=== PATIENT | female | born 1970 | race Two or more races ===

== ENCOUNTER 2016-11-14 09:23 | Inpatient (IN) | payer OTHER ==
[~2016-11-14] VITALS: Ht 152.4 cm; Wt 61.7 kg
[2016-11-14] VITALS (15 sets, daily range): BP systolic 86–106; BP diastolic 49–66
[~2016-11-14 09:23] MED LIST: NKM; ceFAZolin sod 2 GM in D5W 110 ML IVPB ONE
[2016-11-14] MEDS ORDERED: Vancomycin 1gm inj IVPB ONE (09:47)
[2016-11-14] MEDS ORDERED: Thrombin 5000 units TOPIC ONE ×2 (09:47→12:22)
[2016-11-14] MEDS ORDERED: Bupivacaine w/Epi 0.5% 30ml Vial INJ ONE (09:47)
[2016-11-14] MEDS ORDERED: Bacitracin 50000 Units Vial ONE (09:47)
[2016-11-14] MEDS ORDERED: LR 1000ml 1,000 ML IVLG SCH (10:58)
--- NOTE | 2016-11-14 10:58 | Anethesia Preoperative Eval ---
Anesthesia Pre-op PMH/ROS General Date of Evaluation: Nov 14, 2016 Time of Evaluation: 11:09 Anesthesiologist: Edmar ASA Score: ASA 2 Mallampati Score Class I : Soft palate, uvula, fauces, pillars visible Class II: Soft palate, uvula, fauces visible Class III: Soft palate, base of uvula visible Class IV: Only hard plate visible Mallampati Classification: Class I Surgeon: Sylvia Diagnosis: Neck Pain Surgical Procedure: ADR C5-6 Anesthesia History: none Family History: no anesthesia problems Allergies: Coded Allergies: No Known Allergies (Unverified , 11/13/16) Medications: see eMAR Past Medical History Endocrine: Reports: hypothyroidism PSxH Narrative: Appendectomy Anesthesia Pre-op Phys. Exam Physician Exam Last Vital Signs Date Time Temp Pulse Resp B/P Pulse Ox O2 Delivery O2 Flow Rate FiO2 11/14/16 10:02 98.4 56 18 99/61 99 Room Air Constitutional: NAD Neurologic: CN 2-12 intact Cardiovascular: RRR Respiratory: CTA Gastrointestinal: S/NT/ND Airway Exam MO: full ROM: limited Teeth: intact Anesthesia Pre-op A/P Labs Urine Test Test 11/14/16 09:38 Urine HCG, Qualitative Negative Risk Assessment & Plan Assessment: ASA 2 Plan: GA, BIS, Glidescope Status Change Before Surgery: No Pre-Antibiotics Dru Grams Ancef IV Given Within 1 Hr of Incision: Yes Time Given: 11:26 Jose Hyatt MD Nov 14, 2016 10:58
[2016-11-14] MEDS ORDERED: Metoclopramide 10mg/2ml Inj IVP PRN (11:00)
[2016-11-14] MEDS ORDERED: DiphenhydrAMINE 50mg/ml Inj IVP PRN (11:00)
[2016-11-14] MEDS ORDERED: Lidocaine 1% MPF 10mg/ml 5ml ONE (11:00)
[2016-11-14] MEDS ORDERED: Propofol 10mg/ml 100ml btl IV ONE (11:00)
[2016-11-14] MEDS ORDERED: Hydromorphone 0.5mg/0.5ml inj IVP PRN (11:00)
[2016-11-14] MEDS ORDERED: Midazolam 2mg/2ml Inj IVP PRN (11:00)
[2016-11-14] MEDS ORDERED: Atropine Inj 1mg/10ml Syr IV PRN (11:00)
[2016-11-14] MEDS ORDERED: Ketorolac 30mg Inj IV PRN (11:00)
[2016-11-14] MEDS ORDERED: Norco 7.5mg/325mg tab ORAL PRN ×3 (11:00→11:30)
[2016-11-14] MEDS ORDERED: Midazolam 2mg/2ml Inj ONE (11:00)
[2016-11-14] MEDS ORDERED: fentaNYL 100 mcg/2 mL IV PRN (11:00)
[2016-11-14] MEDS ORDERED: Dexamethasone 4mg/ml vial ONE (11:00)
[2016-11-14] MEDS ORDERED: Neostigmine 1mg/ml 10ml Inj ONE (11:00)
[2016-11-14] MEDS ORDERED: Zemuron 50mg/5ml Inj IV ONE (11:00)
[2016-11-14] MEDS ORDERED: Meperidine 25mg/ml Inj IV PRN (11:00)
[2016-11-14] MEDS ORDERED: Labetalol 5mg/ml 20ml vial IV PRN (11:00)
[2016-11-14] MEDS ORDERED: fentaNYL 250mcg/5ml ONE (11:00)
[2016-11-14] MEDS ORDERED: Sterile Water Irrig 1000ml IRRIG ONE (11:00)
[2016-11-14] MEDS ORDERED: LORazepam Inj 2mg/ml 1ml IV PRN (11:00)
[2016-11-14] MEDS ORDERED: LR 1000ml ONE (11:00)
[2016-11-14] MEDS ORDERED: Ketorolac 60mg Inj IV PRN (11:00)
[2016-11-14] MEDS ORDERED: Glycopyrrolate 0.2mg/ml 1ml Vial ONE (11:00)
[2016-11-14] MEDS ORDERED: Norco 5mg/325mg tab ORAL PRN ×2 (11:00→11:30)
[2016-11-14] MEDS ORDERED: Oxycodone/Acetaminophen 5-325 ORAL PRN (11:00)
[2016-11-14] MEDS ORDERED: NS Irrig 1000ml ONE (11:00)
--- NOTE | 2016-11-14 11:19 | Pre-Procedure Note/Attestation ---
Pre-Procedure Note/Attestation Complete Prior to Procedure Planned Procedure: not applicable Procedure Narrative: Artificial disc replacement of C56 Indications for Procedure Pre-Operative Diagnosis: C56 herniation Attestation I attest that I discussed the nature of the procedure; its benefits; risks and complications; and alternatives (and the risks and benefits of such alternatives ), prior to the procedure, with the patient (or the patient's legal asset protection representative). I attest that, if there was a reasonable possibility of needing a blood transfusion, the patient (or the patient's legal asset protection representative) was given the [facility] standardized written summary, pursuant to the Minesh Becky Blood Safety Act ([place] Health and Safety Code # 1645, as amended). I attest that I re-evaluated the patient just prior to the surgery and that there has been no change in the patient's H&P, except as documented below: MINDY MARI Nov 14, 2016 11:19
--- NOTE | 2016-11-14 11:20 | Brief Operative Note ---
Immediate Post Operative Note Operative Note Chief Complaint: neck pain and right arm pain Pre-op Diagnosis: C56 herniation Procedure: Artificial disc replacement of C56 Post-op Diagnosis: same as pre-op Findings: consistent w/pre-op dx studies Surgeon: Sylvia Municipal Services Manager: Deanna Anesthesiologist: Edmar Anesthesia: general Specimen: none Complications: none Condition: stable Estimated Blood Loss: minimal Implant(s) used?: Yes - Prodisc C 5 MINDY MARI Nov 14, 2016 11:20
[2016-11-14] MEDS ORDERED: Acetaminophen (Non formulary) 100 ML IV ONE (11:30)
[2016-11-14] MEDS ORDERED: Milk of Magnesia 30ml Ud ORAL PRN (11:30)
[2016-11-14] MEDS ORDERED: Naloxone 0.4mg/ml Inj IVP PRN (11:30)
[2016-11-14] MEDS ORDERED: HYDROmorphone 1mg/ml Carpuject SUBQ PRN (11:30)
[2016-11-14] MEDS ORDERED: HYDROmorphone 1mg/ml Carpuject IVP PRN (11:30)
[2016-11-14] MEDS: Dexamethasone 4mg/ml vial IVP SCH ×2 (12:00→17:26)
[2016-11-14] MEDS ORDERED: Surgicel 4in x 8in TOPIC ONE (12:20)
--- NOTE | 2016-11-14 13:30 | Immediate Post-Op Evaluation ---
Immediate Post-Op Evalulation Immediate Post-Op Evalulation Procedure: ADR C5-6 Date of Evaluation: Nov 14, 2016 Time of Evaluation: 13:37 IV Fluids: 800 LR Blood Products: 0 Estimated Blood Loss: 30 Urinary Output: 200 Blood Pressure Systolic: 89 Blood Pressure Diastolic: 58 Pulse Rate: 57 Respiratory Rate: 16 O2 Sat by Pulse Oximetry: 100 Temperature (Fahrenheit): 98.2 Pain Score (1-10): 2 Nausea: No Vomiting: No Complications 0 Patient Status: awake, reacts, patent, extubated, none Hydration Status: adequate Dru Grams Ancef IV Given Within 1 Hr of Incision: Yes Time Given: 11:26 Jose Hyatt MD Nov 14, 2016 13:30
--- NOTE | 2016-11-14 13:32 | 48 Hour Post Anesthesia Eval ---
Post Anesthesia Evaluation Procedure: ADR C5-6 Date of Evaluation: Nov 14, 2016 Time of Evaluation: 15:45 Blood Pressure Systolic: 106 0: 67 Pulse Rate: 61 Respiratory Rate: 18 Temperature (Fahrenheit): 98.4 O2 Sat by Pulse Oximetry: 100 Airway: patent Nausea: No Vomiting: No Pain Intensity: 2 Hydration Status: adequate Cardiopulmonary Status: Stable Mental Status/LOC: patient returned to baseline Follow-up Care/Observations: 0 Post-Anesthesia Complications: 0 Follow-up care needed: N/A Jose Hyatt MD Nov 14, 2016 13:32
[2016-11-14] MEDS: NS w/KCl 20mEq 1,000 ML IV SCH (17:19)
[2016-11-14] MEDS: Docusate 100mg cap ORAL SCH (17:26)
[2016-11-14] MEDS: Pericolace tab ORAL SCH (17:26)
[2016-11-14] MEDS: ceFAZolin sod 1 GM in D5W 55 ML IV SCH (20:26)
--- NOTE | 2016-11-14 20:33 | Consultation ---
History of Present Illness General Date patient seen: Nov 14, 2016 Time patient seen: 16:00 Chief Complaint: intractable neck pain Referring physician: Dr. 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 Pt doing well. Pain controlled. Denies f/c, n/c, d/c, chest pain, SOB. Allergies: Coded Allergies: No Known Allergies (Unverified , 11/13/16) Medication History Scheduled No Known Medications* (NKM - No Known Medications*), 0 ., (Reported) Patient History History Provided By: Patient, Family Member, Medical Record Healthcare decision maker Sukhjinder Saenz - Resuscitation status Full Code Advanced Directive on File Past Medical/Surgical History Past Medical/Surgical History: (1) HNP (herniated nucleus pulposus), cervical Family History Family History: (1) No significant family history Social History Social History: (1) No significant social history Review of Systems ROS Narrative CONSTITUTIONAL: No weight loss, fever, chills, weakness or fatigue. HEENT: Eyes: No visual loss, blurred vision, double vision or yellow sclerae. Ears, Nose, Throat: No hearing loss, sneezing, congestion, runny nose or sore throat. SKIN: No rash or itching. CARDIOVASCULAR: No chest pain, chest pressure or chest discomfort. No palpitations or edema. RESPIRATORY: No shortness of breath, cough or sputum. GASTROINTESTINAL: No anorexia, nausea, vomiting or diarrhea. No abdominal pain or blood. NEUROLOGICAL: No headache, dizziness, syncope, paralysis, ataxia, numbness or tingling in the extremities. No change in bowel or bladder control. MUSCULOSKELETAL: No muscle, back pain, joint pain or stiffness. HEMATOLOGIC: No anemia, bleeding or bruising. LYMPHATICS: No enlarged nodes. No history of splenectomy. PSYCHIATRIC: No history of depression or anxiety. ENDOCRINOLOGIC: No reports of sweating, cold or heat intolerance. No polyuria or polydipsia. ALLERGIES: No history of asthma, hives, eczema or rhinitis. Physical Exam Physical Exam Narrative General: alert, cooperative, no distress, appears stated age Head: normocephalic, without obvious abnormality, atraumatic Eyes: conjunctivae/corneas clear. PERRL, EOM's intact Throat: lips, mucosa, and tongue normal. MMM Neck: supple, symmetrical, trachea midline, and no JVD Lungs: clear to auscultation bilaterally Heart: regular rate and rhythm, S1, S2 normal, no murmur, click, rub or gallop Abdomen: soft, non-tender, non-distended, bowel sounds normal; no masses or organomegaly Extremities: extremities normal, atraumatic, no cyanosis or edema Pulses: 2+ and symmetric Skin: skin color, texture, turgor normal; no rashes or lesions Neurologic: grossly normal, no focal deficits Last 24 Hour Vital Signs Date Time Temp Pulse Resp B/P Pulse Ox O2 Delivery O2 Flow Rate FiO2 11/14/16 15:25 97.7 64 16 102/66 98 Nasal Cannula 2.0 11/14/16 15:00 55 22 99/58 100 Nasal Cannula 3.0 11/14/16 14:50 97.8 57 21 95/58 100 Nasal Cannula 3.0 11/14/16 14:49 97.8 11/14/16 14:49 97.8 11/14/16 14:40 55 20 102/54 100 Nasal Cannula 3.0 11/14/16 14:30 56 22 96/54 100 Nasal Cannula 3.0 11/14/16 14:20 57 20 102/60 100 Nasal Cannula 3.0 11/14/16 14:10 56 19 99/61 100 Nasal Cannula 3.0 11/14/16 14:00 52 18 106/60 100 Nasal Cannula 3.0 11/14/16 13:50 49 19 97/54 99 Nasal Cannula 3.0 11/14/16 13:40 50 16 95/57 100 Nasal Cannula 3.0 11/14/16 13:35 49 16 87/53 100 Simple Mask 6.0 11/14/16 13:32 61 18 100 11/14/16 13:30 57 16 100 11/14/16 13:29 51 13 89/50 100 Simple Mask 6.0 11/14/16 13:26 97.0 47 14 86/49 100 Simple Mask 6.0 11/14/16 10:02 98.4 56 18 99/61 99 Room Air Laboratory Tests Test 11/14/16 09:38 Urine HCG, Qualitative Negative Height (Feet): 5 Height (Inches): 0.00 Weight (Pounds): 136 Medications Current Medications Medications (Trade) Dose Ordered Sig/Ena Route PRN Reason Start Time Stop Time Status Last Admin Dose Admin Acetaminophen (Tylenol) 650 mg Q4H PRN ORAL headache or temp>101 11/14/16 11:30 12/14/16 11:29 Acetaminophen/ Hydrocodone Bitart ([place] 5/325) 1 tab Q3H PRN ORAL pain score 1-3 11/14/16 11:30 11/21/16 11:29 Acetaminophen/ Hydrocodone Bitart ([place] 7.5/325) 1 ea Q3H PRN ORAL pain score 4-6 11/14/16 11:30 11/21/16 11:29 Acetaminophen/ Hydrocodone Bitart ([place] 7.5/325) 2 ea Q3H PRN ORAL pain scale 7-10 11/14/16 11:30 11/21/16 11:29 Carisoprodol (Soma) 350 mg TIDPRN PRN ORAL SPASM 11/14/16 11:30 12/14/16 11:29 Cefazolin Sodium/ Dextrose (Ancef/D5W) 55 ml @ 110 mls/hr Q8H IV 11/14/16 20:00 11/15/16 12:29 11/14/16 20:26 Dexamethasone Sodium Phosphate (Decadron 4mg/ml vial) 4 mg Q6HR IVP 11/14/16 12:00 11/15/16 06:01 11/14/16 17:26 Docusate Sodium (Colace) 100 mg TWICE A DAY ORAL 11/14/16 18:00 12/14/16 17:59 11/14/16 17:26 Hydromorphone HCl (Dilaudid) 1 mg Q4H PRN SUBQ Mild Pain (Pain Scale 1-3) 11/14/16 11:30 11/21/16 11:29 Hydromorphone HCl (Dilaudid) 2 mg Q3H PRN SUBQ Severe Pain (Pain Scale 7-10) 11/14/16 11:30 11/21/16 11:29 Hydromorphone HCl (Dilaudid) 2 mg Q4H PRN SUBQ Moderate Pain (Pain Scale 4-6) 11/14/16 11:30 11/21/16 11:29 11/14/16 17:19 Hydromorphone HCl 1 mg 1 mg Q2H PRN IVP Breakthrough Pain 11/14/16 11:30 11/21/16 11:29 Magnesium Hydroxide (Mom) 30 ml QIDPRN PRN ORAL Constipation 11/14/16 11:30 12/14/16 11:29 Metoclopramide HCl (Reglan) 10 mg Q6H PRN IVP Nausea & Vomiting 11/14/16 11:30 12/14/16 11:29 Naloxone HCl (Narcan) 0.1 mg PRN PRN IVP RR<12/min, pt unarousable 11/14/16 11:30 12/14/16 11:29 Ondansetron HCl (Zofran) 4 mg Q6H PRN IVP Nausea & Vomiting 11/14/16 11:30 12/14/16 11:29 11/14/16 20:26 Senna/Docusate Sodium (Estefanía-Colace) 1 ea TWICE A DAY ORAL 11/14/16 18:00 12/14/16 17:59 11/14/16 17:26 Sodium Chloride (NS w/KCl 20mEq) 1,000 ml @ 100 mls/hr Q10H IV 11/14/16 17:00 12/14/16 16:59 11/14/16 17:19 Temazepam (Restoril) 15 mg HSPRN PRN ORAL Insomnia 11/14/16 11:30 11/21/16 11:29 Assessment/Plan Problem List: (1) HNP (herniated nucleus pulposus), cervical ICD Codes: M50.20 - Other cervical disc displacement, unspecified cervical region SNOMED: 41552643 Status: stable Assessment/Plan s/p anterior cervical disectomy and artificial disc replacement of C5-6 and partial vertebrectomy of C5-6, POD#0 - encourage mobilization/ambulation - encourage incentive spirometry to optimize pulmonary hygiene - DVT/GI prophylaxis as appropriate - ctm CBC and hemodynamics - ctm electrolytes, adjust/replete prn - PT/OT - pain control, supportive care, bowel regimen - DC planning Cindy Dominguez M.D. Nov 14, 2016 20:33
[2016-11-14] MEDS: Metoclopramide 10mg/2ml Inj IVP PRN (23:30)
[2016-11-15] MEDS: Dexamethasone 4mg/ml vial IVP SCH ×2 (00:47→05:38)
[2016-11-15 00:49] VITALS: BP 98/52
--- NOTE | 2016-11-15 03:18 | Operative Note - Dictated ---
DATE OF OPERATION: 11/14/2016 SURGEON: Jamar Ward M.D., orthopedic spine surgeon. [employer] OFFICER SURGEON: Aaron Huerta M.D. PREOPERATIVE DIAGNOSES: 1. Intractable neck pain. 2. Radiculopathy. 3. Herniation, C5-C6. 4. Neural foraminal stenosis C5-C6. 5. Stenosis. POSTOPERATIVE DIAGNOSES: 1. Intractable neck pain. 2. Radiculopathy. 3. Herniation, C5-C6. 4. Neural foraminal stenosis C5-C6. 5. Stenosis PROCEDURE PERFORMED: 1. Anterior cervical discectomy and artificial disc replacement of C5-C6 using a Synthes Prodisc C 5 height. 3. Use of intraoperative microscope. 4. Motor evoked potential monitoring. 5. Somatosensory evoked potential monitoring. 6. Supervision and interpretation of fluoroscopy. COMPLICATIONS: None. ANESTHESIA: General. ESTIMATED BLOOD LOSS: Less than 100 mL. INDICATIONS FOR SURGERY: This patient is a 46-year-old female who has a history of diagnoses as listed above. As of result of this, the patient sustained intractable neck pain, radiculopathy, herniation, C5-C6, neural foraminal stenosis C5-C6, and stenosis We tried a course of conservative management but despite this course there was still a significant component of persistent, recalcitrant neck pain and arm pain. The MRI demonstrated significant neural foraminal compromise secondary to disc herniations at C5-C6. We had a long discussion with Laurie regarding the risks and benefits of surgery. Our discussion included but was not limited to nonoperative management, chiropractic management, another epidural steroid injection as well definitive management in the form of surgery. We recommended a ADR C56 as final definitive management. We reviewed the risks and benefits of surgery with the patient. Our discussion included a comprehensive review of the clinical issues and the nature of the clinical decision. We reviewed the alternatives, including doing nothing. The patient elected to proceed accordingly with anterior cervical discectomy and artificial disc replacement of C5-C6 using a Synthes Prodisc C 5 height. We had a long discussion regarding the risks, alternatives and benefits of surgery. Our description of the risks included a discussion in person as well as a signed consent which detailed all pertinent risks from the procedure itself. Briefly, our discussion included but was not limited to infection, bleeding, pseudarthrosis, spinal cord injury, neurovascular injury, dural tear, CSF leak, neuropathy, paralysis, permanent weakness/drop foot/drop arm, paresthesias, blindness, palsy and weakness. The patient understood there may be a need for a revision surgery or additional procedures. Approach-related complications including dysphonia, dysphagia, blindness, permanent vocal cord and neural injury, hematoma, swallowing and breathing difficulty. Medical complications were reviewed including liver, kidney, shock, cardiopulmonary failure, anesthesia complications including , swelling, damage to the musculature, larynx/voice injury or loss, esophagus/throat, trachea, blood vessels and muscles/muscular sprain and lungs/pneumothorax during this surgical procedure; injury to deeper structures may be temporary or permanent. After this review of risks, the patient understood these and elected to proceed. A written and verbal consent was given. We discussed the pros and cons of all the alternatives. We discussed the uncertainties associated with the decision. Afterwards I assessed the patient's understanding and explored their preferences. All questions were answered and no guarantees were given. Medical clearance was obtained prior to surgery. INTRAOPERATIVE FINDINGS: A broad based disc herniation which was found posterior to a tear/rent in the posterior longitudinal ligament at C5-C6 causing a considerable amount of neural foraminal stenosis with significant encroachment on the neural foramina and spinal cord. DESCRIPTION OF PROCEDURE: Under the benefit of general endotracheal anesthesia and with the assistance of the entire operative team, the patient was moved from the rsan antonio onto the operative table in the supine position. The head was secured and carefully positioned appropriately. Bilateral arms were secured with GelPads and foam and all bony prominences were padded. For the bilateral lower extremities SCD and CHARI hose were placed for DVT prophylaxis. A surgical timeout was called which corroborated our planned procedure of anterior cervical discectomy and artificial disc replacement of C5-C6 using a Synthes Prodisc C 5 height. Preoperative antibiotics were administered within 30 minutes of the incision for antibiotic prophylaxis. Using lateral fluoroscopic radiography, the operative levels were delineated. Next the wound was prepped and draped with Chlorhexidine and sterile drapes. An incision was based on lateral fluoroscopy and we centered our incision at the C5-C6 interspace and next using a standard Logan-Smith anterior based approach the incision was taken down through the skin and subcutaneous tissues until the vertebral bodies and their corresponding disc spaces were visualized. A needle was placed into the interspace to confirm placement of the operative interspace and we performed the remainder of procedure under microscopic visualization. Next, using a bipolar and Bovie cautery to ensure meticulous hemostasis, the longus colli was mobilized bilaterally and retractors were placed deep to the longus colli bilaterally to address retraction. Next we turned our attention to the radical anterior discectomy. This was initially performed at C5-C6. First by using a 15 blade scalpel followed by narrow pituitaries and a Microsect 5-B curette was used to denude the endplate of all cartilaginous tissue. Next using a [employer] AM8 drillbit the vertebral endplates were removed in a layer by layer fashion, and ultimately the posterior uncinate joints bilaterally and posterior osteophytic lips and margins causing central and lateral impingement were carefully denuded until visualization of the posterior longitudinal ligament was possible. An endplate preparation was performed in the exact same fashion using an intervertebral bricklayer paving brick, sequential distraction was obtained throughout the disc space. We saw a tear/rent in the PLL and this was carefully mobilized and dissected using a Microsect 1-B curet until we visualized a broad-based disc herniation with compression of the spinal cord as well as neural foramina, right sided. This neural foraminal compression was carefully resected using a Kerrison-1 and Kerrison-2 rongeurs until complete decompression of the spinal cord was visualized and complete decompression of the neural foramina and nerve root therein as well as the axilla and lateral margin of the nerve root was visualized and subsequently completely decompressed. The family was notified at one hour intervals throughout the procedure to provide for consistent updates. We next turned our attention towards trialing our implant within the disc space. We initially tried size5 and the Prodisc Cervical spacer fit well in regards to depth and width. This implant was opened and prepared. Next under direct visualization I confirmed excellent fit in respect to the anterior and posterior vertebral bodies, the uncinate joints and in regards to toggle. Once satisfied with this placement on serial AP and lateral fluoroscopy I turned my attention towards cutting our josias. These were cut in the bones using a reciprocating drill and afterwards all free fragments of bone were irrigated. Next FloSeal was placed into the interspace and the implant was inserted using fluoroscopic guidance. Next the Synthes Prodisc C size 5 ADR was then carefully advanced and secured into the intervertebral space under direct visualization and with supervision of AP and lateral fluoroscopic views. Jamar Ward M.D. DR: Jose JOB#: [id number] CC: JOHN
[2016-11-15] MEDS: NS w/KCl 20mEq 1,000 ML IV SCH ×2 (03:56→12:19)
[2016-11-15] MEDS: ceFAZolin sod 1 GM in D5W 55 ML IV SCH ×2 (03:57→12:19)
[2016-11-15 04:12] VITALS: BP 90/47
[2016-11-15 08:00] VITALS: BP 94/46
[2016-11-15] MEDS: Docusate 100mg cap ORAL SCH ×2 (08:36→17:18)
[2016-11-15] MEDS: Pericolace tab ORAL SCH ×2 (08:36→17:18)
[2016-11-15] MEDS: Metoclopramide 10mg/2ml Inj IVP PRN (08:37)
[2016-11-15 11:52] VITALS: BP 88/50
--- NOTE | 2016-11-15 14:05 | General Progress Note ---
Assessment/Plan Status: stable Assessment/Plan (1) HNP (herniated nucleus pulposus), cervical ICD Codes: M50.20 - Other cervical disc displacement, unspecified cervical region SNOMED: [id number] Status: stable Assessment/Plan s/p anterior cervical disectomy and artificial disc replacement of C5-6 and partial vertebrectomy of C5-6, POD#1 - encourage mobilization/ambulation - encourage incentive spirometry to optimize pulmonary hygiene - DVT/GI prophylaxis as appropriate - ctm CBC and hemodynamics - ctm electrolytes, adjust/replete prn - PT/OT - pain control, supportive care, bowel regimen - DC planning--planfor d/c today Subjective Date patient seen: Nov 15, 2016 Time patient seen: 14:05 ROS Limited/Unobtainable: No Constitutional: Reports: no symptoms HEENT: Reports: no symptoms Cardiovascular: Reports: no symptoms Respiratory: Reports: no symptoms Gastrointestinal/Abdominal: Reports: no symptoms Genitourinary: Reports: no symptoms Endocrine: Reports: no symptoms Hematologic/Lymphatic: Reports: no symptoms Allergies: Coded Allergies: No Known Allergies (Unverified , 11/13/16) All Systems: reviewed and negative except above Subjective POD#1 Pain controlled Tolerating diet Passing gas OOB Objective Last 24 Hour Vital Signs Date Time Temp Pulse Resp B/P Pulse Ox O2 Delivery O2 Flow Rate FiO2 11/15/16 11:52 98.2 56 20 88/50 96 Room Air 11/15/16 08:00 97.3 60 18 94/46 99 Room Air 11/15/16 04:48 97.7 11/15/16 04:12 98.4 67 18 90/47 96 Room Air 11/15/16 00:49 97.7 64 19 98/52 97 Room Air 11/14/16 20:00 96.9 58 18 98/58 98 Nasal Cannula 3.0 11/14/16 15:25 97.7 64 16 102/66 98 Nasal Cannula 2.0 11/14/16 15:00 55 22 99/58 100 Nasal Cannula 3.0 11/14/16 14:50 97.8 57 21 95/58 100 Nasal Cannula 3.0 11/14/16 14:49 97.8 11/14/16 14:49 97.8 11/14/16 14:40 55 20 102/54 100 Nasal Cannula 3.0 11/14/16 14:30 56 22 96/54 100 Nasal Cannula 3.0 11/14/16 14:20 57 20 102/60 100 Nasal Cannula 3.0 11/14/16 14:10 56 19 99/61 100 Nasal Cannula 3.0 Intake and Output 11/14/16 11/15/16 19:00 07:00 Intake Total 1000 ml 955 ml Output Total 220 ml Balance 780 ml 955 ml IV Total 1000 ml 955 ml Output Urine Total 200 ml Estimated Blood Loss 20 ml # Voids 1 2 Height (Feet): 5 Height (Inches): 0.00 Weight (Pounds): 136 Objective General: alert, cooperative, no distress, appears stated age Head: normocephalic, without obvious abnormality, atraumatic Eyes: conjunctivae/corneas clear. PERRL, EOM's intact Throat: lips, mucosa, and tongue normal. MMM Neck: supple, symmetrical, trachea midline, and no JVD Lungs: clear to auscultation bilaterally Heart: regular rate and rhythm, S1, S2 normal, no murmur, click, rub or gallop Abdomen: soft, non-tender, non-distended, bowel sounds normal; no masses or organomegaly Extremities: extremities normal, atraumatic, no cyanosis or edema Pulses: 2+ and symmetric Skin: skin color, texture, turgor normal; no rashes or lesions Neurologic: grossly normal, no focal deficits Cindy Dominguez M.D. Nov 15, 2016 14:05
[2016-11-15 14:45] VITALS: BP 99/59
[2016-11-15 16:00] VITALS: BP 92/52
--- NOTE | 2016-11-15 22:58 | Discharge Summary ---
DATE OF ADMISSION: 11/14/2016 DATE OF DISCHARGE: 11/15/2016 DATE OF ADMISSION: 11/14/2016. DATE OF DISCHARGE: 11/15/2016. PROCEDURE PERFORMED DURING ADMISSION: Artificial disk replacement, cervical 5-6. REASON FOR ADMISSION: Herniated nucleus pulposus, cervical 5-6. DISCHARGE PHYSICAL EXAM: 1. Patient was ambulating with and without the assistance of physical therapy 2. Prior to discharge home incision was clean and dry with minimal swelling 3. Follows commands 4. Alert and oriented 5. Curran discontinued, voiding 6. Incentive spirometer at bedside 7. IVF hep locked MOTOR: Demonstrates expected postoperative bulk and tone. Moves biceps, triceps, and deltoid musculature on command. Moves hip flexors, quadriceps, tibialis anterior, EHL, gastrocsoleus musculature on command as well. TREATMENT RENDERED: 1. Daily nursing care 2. Physical Therapy 3. Occupational Therapy 4. Intravenous medications 5. Oral medications 6. Daily postoperative examinations by Spine surgery team CONDITION OF PATIENT ON DISCHARGE: The condition on discharge is stable for discharge to home DISCHARGE INSTRUCTIONS: Our specific instructions relating to physical activity, medications diet and follow-up care are detailed in our standard operative folder and were given to this patient prior to surgery. We will however summarize these briefly as stated below. Regarding physical activity we would like the patient to limit their flexion, extension and rotation. We also require a limitation on their bending lifting and twisting. All medication has been called in prior to surgery to their pharmacy of choice. They can resume their regular diet once tolerated. We would like them to shower and limit soaking the wound in a tub/Jacuzzi/the ocean for a period of one month or until the incision is completely healed. We will have them follow up in our office in three weeks time for their regularly scheduled appointment. They understand to call our office tomorrow to schedule the time for their three week followup appointment. The patient will notify us should they experience any increase in the severity of pain, redness/swelling/ or drainage from their incision. Jamar Ward M.D. DR: CHANDRAKANT JOB#: [id number] CC:
--- NOTE | 2016-11-17 08:09 | Diagnostic Imaging Report ---
Indication: Intraoperative imaging of the cervical spine for disc replacement of C5/C6 Technique: Intraoperative imaging of the cervical spine with for fluoroscopically captured images. Comparison: None Findings: Intraoperative imaging demonstrates cervical arthroplasty of the C5/C6 disc space. Endotracheal tube is present. Impression: Intraoperative imaging of the cervical spine.
== END 2016-11-15 19:00 | disposition home or self-care (01) | DRG 518 ==
LOC: SDSOVERFLO 09:23 → 3E 15:15
PROC: 0RR30JZ Replacement of Cervical Vertebral Disc with Synthetic Substitute, Open Approach (ICD-10-PCS; principal; 2016-11-14 11:30)
PROC: 4A11X4G Monitoring of Peripheral Nervous Electrical Activity, Intraoperative, External Approach (ICD-10-PCS; principal; 2016-11-14 11:30)
PROC: 0RT30ZZ Resection of Cervical Vertebral Disc, Open Approach (ICD-10-PCS; principal; 2016-11-14 11:30)
DX: M50.122 Cervical disc disorder at C5-C6 level with radiculopathy (principal); E03.9 Hypothyroidism, unspecified
CPT/HCPCS: 36415; 72040; 76001; 81025; 86850; 86900; 86901; 87081; 94003; 94150; C9399; J2180; J2250; J2405; J2710; J2765

== ENCOUNTER 2018-10-29 09:56 | Inpatient (IN) | payer OTHER ==
--- NOTE | 2018-10-28 10:05 | NUR ---
ADMITTED PT VIA [facility] #[id number].
[~2018-10-29] VITALS: Ht 154.9 cm; Wt 63.5 kg
[2018-10-29] VITALS (12 sets, daily range): BP systolic 92–108; BP diastolic 53–68
[~2018-10-29 09:56] MED LIST changes: -ceFAZolin sod 2 GM in D5W 110 ML IVPB ONE; +ceFAZolin sod 2 GM in D5W 110 ML IVPB SCH
--- NOTE | 2018-10-29 10:03 | Pre-Procedure Note/Attestation ---
Pre-Procedure Note/Attestation Complete Prior to Procedure Planned Procedure: left Procedure Narrative: Left sided hemilaminotomy foraminotomy microdiscectomy of Lumbar 45 and Lumbar 5Sacral 1 Indications for Procedure Pre-Operative Diagnosis: L45 and L5S1 herniation Attestation I attest that I discussed the nature of the procedure; its benefits; risks and complications; and alternatives (and the risks and benefits of such alternatives ), prior to the procedure, with the patient (or the patient's legal ambulatory services representative). I attest that, if there was a reasonable possibility of needing a blood transfusion, the patient (or the patient's legal ambulatory services representative) was given the [place] Department [employer] Services standardized written summary, pursuant to the M[place]h Becky Blood Safety Act ([place] Health and Safety Code # 1645, as amended). I attest that I re-evaluated the patient just prior to the surgery and that there has been no change in the patient's H&P, except as documented below: Jamar Ward MD Oct 29, 2018 10:03
--- NOTE | 2018-10-29 10:06 | Brief Operative Note ---
Immediate Post Operative Note Operative Note Chief Complaint: low back and leg pains Pre-op Diagnosis: L45 and L5S1 herniation Procedure: Left sided hemilaminotomy foraminotomy microdiscectomy of Lumbar 45 and Lumbar 5Sacral 1 Post-op Diagnosis: same as pre-op Findings: consistent w/pre-op dx studies Surgeon: Sylvia Sponge Fisherman: Tamika Anesthesiologist: Anesthesia: general Specimen: none Complications: none Condition: stable Fluids: ivf Estimated Blood Loss: minimal Drains: none Implant(s) used?: No Jamar Ward MD Oct 29, 2018 10:06
[2018-10-29] MEDS ORDERED: Milk of Magnesia 30ml Ud ORAL PRN (10:15)
[2018-10-29] MEDS ORDERED: Morphine Sulfate 4mg/ml Inj (IV/IM USE ONLY) IV PRN ×2 (10:15)
[2018-10-29] MEDS ORDERED: Norco 5mg/325mg tab ORAL PRN ×2 (10:15→11:15)
[2018-10-29] MEDS ORDERED: Chloraseptic Spray 20mL Bottle ORAL PRN (10:15)
[2018-10-29] MEDS ORDERED: HYDROmorphone 1mg/ml Carpuject IVP PRN (10:15)
[2018-10-29] MEDS ORDERED: Morphine Sulfate 2mg/ml Inj IV PRN (10:15)
[2018-10-29] MEDS ORDERED: Metoclopramide 10mg/2ml Inj IVP PRN (10:15)
[2018-10-29] MEDS ORDERED: HYDROcodone/Acetamin 7.5/325 tab ORAL PRN ×2 (10:15→11:15)
[2018-10-29] MEDS ORDERED: Naloxone 0.4mg/ml Inj IVP PRN (10:15)
[2018-10-29] MEDS ORDERED: LR 1000ml 1,000 ML IVLG SCH (11:13)
[2018-10-29] MEDS ORDERED: fentaNYL 100 mcg/2 mL IV PRN (11:15)
[2018-10-29] MEDS ORDERED: LORazepam Inj 2mg/ml 1ml IV PRN (11:15)
[2018-10-29] MEDS ORDERED: Meperidine 50mg/ml Inj(FOR RIGORS ONLY) IVP PRN (11:15)
[2018-10-29] MEDS ORDERED: Hydromorphone 0.5mg/0.5ml inj IVP PRN (11:15)
[2018-10-29] MEDS ORDERED: Midazolam 2mg/2ml Inj IVP PRN (11:15)
[2018-10-29] MEDS ORDERED: oxyCODONE HCL/Acetaminophen 5/325mg ORAL PRN (11:15)
[2018-10-29] MEDS ORDERED: Ketorolac 30mg Inj IV PRN ×2 (11:15)
[2018-10-29] MEDS ORDERED: DiphenhydrAMINE 50mg/ml Inj IVP PRN (11:15)
[2018-10-29] MEDS ORDERED: Atropine Sulfate 0.4mg/ml inj IVP PRN (11:15)
--- NOTE | 2018-10-29 11:15 | Anethesia Preoperative Eval ---
Anesthesia Pre-op PMH/ROS General Date of Evaluation: Oct 29, 2018 Time of Evaluation: :17 Anesthesiologist: Edmar ASA Score: ASA 2 Mallampati Score Class I : Soft palate, uvula, fauces, pillars visible Class II: Soft palate, uvula, fauces visible Class III: Soft palate, base of uvula visible Class IV: Only hard plate visible Mallampati Classification: Class I Surgeon: Sylvia Diagnosis: Back Pain Surgical Procedure: L Microdiscectomy, Hemilaminotomy, Baxano, Discectomy L4-S1 Anesthesia History: none Family History: no anesthesia problems Allergies: Coded Allergies: No Known Allergies (Unverified , 11/13/16) Medications: see eMAR Patient NPO?: Yes NPO Date: Oct 28, 2018 NPO Time: 1999 Past Medical History Neurologic/Psychiatric: Reports: depression/anxiety Endocrine: Reports: hypothyroidism PSxH Narrative: Appendectomy, Cervical Fusion 2017 Anesthesia Pre-op Phys. Exam Physician Exam Last Vital Signs Date Time Temp Pulse Resp B/P (MAP) Pulse Ox O2 Delivery O2 Flow Rate FiO2 10/29/18 11:08 98.6 52 18 101/64 (76) 98 Constitutional: NAD Neurologic: CN 2-12 intact Cardiovascular: RRR Respiratory: CTA Gastrointestinal: S/NT/ND Airway Exam Mallampati Score: Class I MO: full ROM: limited Teeth: intact Anesthesia Pre-op A/P Labs Urine Test Test 10/29/18 10:10 Urine HCG, Qualitative Negative (NEGATIVE) Risk Assessment & Plan Assessment: ASA 2 Plan: GA, SED, GlideScope Go Status Change Before Surgery: No Pre-Antibiotics Dru Grams Ancef IV Given Within 1 Hr of Incision: Yes Time Given: 13:36 Jose Hyatt MD Oct 29, 2018 11:15
--- NOTE | 2018-10-29 11:23 | 48 Hour Post Anesthesia Eval ---
Post Anesthesia Evaluation Procedure: L Microdiscectomy, Hemilaminotomy, Baxano, Discetomy L4-S1 Date of Evaluation: Oct 29, 2018 Time of Evaluation: 17:56 Blood Pressure Systolic: 102 0: 67 Pulse Rate: 69 Respiratory Rate: 18 Temperature (Fahrenheit): 98.2 O2 Sat by Pulse Oximetry: 100 Airway: patent Nausea: No Vomiting: No Pain Intensity: 2 Hydration Status: adequate Cardiopulmonary Status: Stable Mental Status/LOC: patient returned to baseline Follow-up Care/Observations: 0 Post-Anesthesia Complications: 0 Follow-up care needed: N/A Jose Hyatt MD Oct 29, 2018 11:23
--- NOTE | 2018-10-29 11:23 | Immediate Post-Op Evaluation ---
Immediate Post-Op Evalulation Immediate Post-Op Evalulation Procedure: L Microdiscectomy, Hemilaminotomy, Baxano, Discetomy L4-S1 Date of Evaluation: Oct 29, 2018 Time of Evaluation: 15:52 IV Fluids: 500 LR Blood Products: 0 Estimated Blood Loss: 20 Urinary Output: 200 Blood Pressure Systolic: 103 Blood Pressure Diastolic: 64 Pulse Rate: 70 Respiratory Rate: 16 O2 Sat by Pulse Oximetry: 100 Temperature (Fahrenheit): 97.9 Pain Score (1-10): 2 Nausea: No Vomiting: No Complications 0 Patient Status: awake, reacts, patent, extubated, none Hydration Status: adequate Dru Grams Ancef IV Given Within 1 Hr of Incision: Yes Time Given: 15:36 Jose Hyatt MD Oct 29, 2018 11:23
[2018-10-29] MEDS ORDERED: Zemuron 50mg/5ml Inj IV ONE (11:32)
[2018-10-29] MEDS ORDERED: Acetaminophen (Non formulary) 100 ML IV SCH (12:00)
[2018-10-29] MEDS ORDERED: fentaNYL 100 mcg/2 mL IV ONE (12:39)
[2018-10-29] MEDS ORDERED: Sodium Chloride 10ml vial INJ ONE (12:40)
[2018-10-29] MEDS ORDERED: Lidocaine 1% Plain 30 ml INJ ONE (12:40)
[2018-10-29] MEDS ORDERED: Lidocaine 1% MPF 10mg/ml 5ml ONE (12:40)
[2018-10-29] MEDS ORDERED: NS Irrig 1000ml ONE (13:00)
[2018-10-29] MEDS ORDERED: Neostigmine 1mg/ml 10ml Inj ONE (13:00)
[2018-10-29] MEDS ORDERED: LR 1000ml ONE ×2 (13:00)
[2018-10-29] MEDS ORDERED: Sterile Water Irrig 1000ml IRRIG ONE (13:00)
[2018-10-29] MEDS ORDERED: Vancomycin 1gm vial IVPB ONE (13:20)
[2018-10-29] MEDS ORDERED: Thrombin 5000 units TOPIC ONE ×2 (13:20→14:21)
[2018-10-29] MEDS ORDERED: Ropivacaine 5mg/ml Vial 30ml INJ ONE ×3 (13:21→14:59)
[2018-10-29] MEDS ORDERED: Bacitracin 50000 Units Vial ONE (13:21)
[2018-10-29] MEDS ORDERED: Gelfoam Size TOPIC ONE (13:21)
[2018-10-29] MEDS ORDERED: Glycopyrrolate 0.2mg/ml 1ml Vial ONE (14:08)
--- NOTE | 2018-10-29 16:50 | Diagnostic Imaging Report ---
INDICATION: Pain, intraoperative TECHNIQUE: Intraoperative imaging Fluoroscopy time: 5.1 seconds Total dose: 0.35287 mGym2 Total number of images: 3 COMPARISON: None FINDINGS: Intraoperative images demonstrate surgical tool's projected over the L4 vertebral body and posterior to what is presumably the L5-S1 disc. Subsequent images demonstrate surgical tools posterior to the L4-5 and L5-S1 disc. Subsequent images demonstrate deployment of surgical device at L5-S1 IMPRESSION: Intraoperative imaging, as described
--- NOTE | 2018-10-29 17:18 | NUR ---
NURSE NOTES: Received patient in bed from PACU. awake, oriented. verbally responsive. with no sob. IV access in wrist intact. with no bleeding. Daughter at bedside. no belongings. Oriented to room and call light. Will cont to monitor.
--- NOTE | 2018-10-29 18:00 | NUR ---
NURSE NOTES: Patient received from PACU via bed to 315-1 at 1705, stable condition. Occitan speaking, daughter present at bedside as automatic fancy machine operator. O2 3LNC in place, no SOB/respiratory distress noted. IVF infusing to right wrist, as ordered, site asymptomatic. Neuro checks done, CMS+, skin warm, pedal pushes equal/strong, wiggles, denies numbness, mild tingling noted at bases of bilateral feet. SCDs on. Encouraged CDB/ankle ROM. FC in place, patent to gravity. Patient reports no past medical history, no past surgical history, no home medications. Surgical dressing clean/dry/intact, ice pack in place. Patient oriented to room, call light in reach, bed in lowest position, will continue to monitor.
[2018-10-29] MEDS: NS w/KCl 20mEq 1,000 ML IV SCH (18:31)
--- NOTE | 2018-10-29 20:00 | NUR ---
HAND-OFF: Report given to Finesse GAN.
--- NOTE | 2018-10-29 20:13 | Cardiology Progress Note ---
Assessment/Plan Assessment/Plan [id number] antiemetic dvt ppx IS ambualte when allow bernardo esoon bp at [facility] 97/67in md office Objective Last 24 Hour Vital Signs Date Time Temp Pulse Resp B/P (MAP) Pulse Ox O2 Delivery O2 Flow Rate FiO2 10/29/18 17:08 97.9 10/29/18 17:08 97.9 10/29/18 16:53 97.9 54 13 100/53 100 Nasal Cannula 3 10/29/18 16:38 52 14 108/68 100 Nasal Cannula 3 10/29/18 16:25 51 15 104/67 100 Nasal Cannula 3 10/29/18 16:10 53 13 101/65 100 Nasal Cannula 3 10/29/18 16:00 60 20 102/65 100 Simple Mask 6 10/29/18 15:50 62 15 102/63 100 Simple Mask 6 10/29/18 15:45 66 17 104/64 100 Simple Mask 6 10/29/18 15:41 97.9 70 16 98/63 100 Simple Mask 6 10/29/18 15:40 69 18 100 10/29/18 15:39 70 16 100 10/29/18 11:12 Room Air 10/29/18 11:08 98.6 52 18 101/64 (76) 98 Laboratory Tests Test 10/29/18 10:10 Urine HCG, Qualitative Negative (NEGATIVE) Gui Orr MD Oct 29, 2018 20:13
--- NOTE | 2018-10-29 20:30 | NUR ---
NURSE NOTES: Received report from Grace GAN. Pt A&O x4, laying semi-fowlers in bed. No signs of pain or distress. IV site dry & intact, infusing fluids. Surgical dressing C/D/I. Ice pack on surgical site. Curran patent & draining, yellow urine. Pt B/P 92/53, ordered 250 NS bolus. B/P reassessed 105/64. Call light in reach, bed in lowest position, side rails up x2. Will continue to monitor
[2018-10-29] MEDS: ceFAZolin sod 1 GM in D5W 55 ML IV SCH (20:58)
[2018-10-29] MEDS ORDERED: NS 250 ML IVPB ONE (21:00)
[2018-10-29] MEDS: HYDROcodone/Acetamin 7.5/325 tab ORAL PRN (22:43)
[2018-10-30] VITALS: BP 91/54
[2018-10-30] MEDS: Dexamethasone 4mg/ml vial IVP SCH ×4 (00:24→18:52)
--- NOTE | 2018-10-30 02:45 | Consultation ---
DATE OF CONSULTATION: 10/29/2018 INTERNAL MEDICINE CONSULTATION CONSULTING PHYSICIAN: Gui Orr M.D. REFERRING PHYSICIAN: Jamar Ward M.D. REASON FOR REFERRAL: Postoperative medical care. HISTORY OF PRESENT ILLNESS: This is a middle-aged female, who has a history of herniated nucleus pulposus, cervical and lumbar, who underwent surgery by Dr. Ward with left-sided hemilaminectomy, foraminectomy, and microdiskectomy. Postoperatively, the patient is being seen now. She does have some nausea. No vomiting. No sore throat. No chest pain or any shortness of breath. No palpitation. No dizziness. Just appeared to be nauseated. PAST MEDICAL HISTORY: Fairly unremarkable. PAST SURGICAL HISTORY: She does have a history of cervical spine surgery. ALLERGIES: She has no known drug allergies. SOCIAL HISTORY: Does not smoke. Does not drink alcoholic beverages. No drug use. REVIEW OF SYSTEMS: GASTROINTESTINAL: Positive for nausea. No bowel movement. She has no vomiting. GENITOURINARY: She has Curran catheter in place. PULMONARY: Denies cough, wheezing, or sore throat. CONSTITUTIONAL: No fevers, chills, or night sweats. NEUROLOGIC: Negative. PHYSICAL EXAMINATION: GENERAL: Shows to be a middle-aged female, in no respiratory distress. NECK: Supple. No jugular venous distention. LUNGS: Clear to auscultation and percussion. CARDIAC: S1 is normal. S2 is normal. Regular rate and rhythm. There is systolic ejection murmur noted in the upper chest. ABDOMEN: Soft, nontender, and obese. EXTREMITIES: There is no edema. She has pneumatic compression stockings in place. NEUROLOGIC: She is awake, alert, and responsive. Moves all four extremities. LABORATORY VALUES: Only available from preoperative, which reviewed normal sinus rhythm, normal QRS axis, and no ST or T-wave abnormalities of any significant degree. A chest x-ray was performed, preoperatively shows normal chest and her blood tests show white count of 7.4, hemoglobin of 16.1, and platelet count of 327,000. Sodium 140, potassium 4.2, chloride 109, bicarb is 26, BUN of 14, creatinine is 0.6, cholesterol 171, and LDL of 104. Liver function tests are otherwise unremarkable. PT and PTT are within normal limits. Urinalysis was fairly unremarkable. ASSESSMENT AND PLAN: 1. Low back pain secondary to L4, L5, and S1 disk herniation. Now, postoperative day #0. 2. Nausea. 3. Minimal hypotension. Dr. Ward, this patient was seen in cardiac consultation. The patient's blood pressure 98/63. She is asymptomatic. Her preoperative blood pressure was 96/67, on review of the physician, who started her on preoperative consultation, therefore not much change from baseline. She is nauseated from the effect of sedation and pain medications. Antiemetics to be administered. DVT prophylaxis with the use of pneumatic compression stockings in place. Incentive spirometer is available and instructed to use. Hopefully, she will be able to move around tomorrow. Once she takes adequate p.o. and is able to move around and have bowel movements, she will be discharged home hopefully within the next day or two. Gui Orr M.D. DR: MINDI JOB#: [id number] CC:
[2018-10-30 04:00] VITALS: BP 96/52
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
[2018-10-30] MEDS: ceFAZolin sod 1 GM in D5W 55 ML IV SCH ×2 (04:15→12:35)
[2018-10-30] MEDS: NS w/KCl 20mEq 1,000 ML IV SCH ×2 (04:15→17:21)
[2018-10-30] MEDS: HYDROcodone/Acetamin 7.5/325 tab ORAL PRN ×3 (06:05→19:48)
--- NOTE | 2018-10-30 07:55 | NUR ---
HAND-OFF: Report given to Jennie GAN. Pt is stable.
[2018-10-30 08:00] VITALS: BP 99/54
--- NOTE | 2018-10-30 08:00 | NUR ---
NURSE NOTES: Received report from Finesse GAN. During rounds patient is awake alert and oriented x4, no s/s acute distress noted. Posterior dressing assessed c/d/i. IVF running per order. Curran to gravity drainage, will remove today per order. Patient reports she is having pain rated 7/10 at surgical site. Educated patient that I will medicate per order when pain medication is due, patient in agreement. Side rails upx3, bed low and locked, call light in reach. Will continue to monitor.
[2018-10-30] MEDS: Docusate Sod/Senna tab ORAL SCH ×2 (08:40→18:53)
[2018-10-30] MEDS: Docusate 100mg cap ORAL SCH ×2 (08:40→18:53)
--- NOTE | 2018-10-30 10:27 | General Surgery Progress Note ---
General Surgery-Progress Note Subjective Day of Surgery: Reason for Consult POD 1 Procedure Performed Left sided hemilaminotomy foraminotomy microdiscectomy of Lumbar 45 and Lumbar 5Sacral 1 with darlene Chief Complaint: abdominal and flank ache Symptoms: pain same, tolerating diet, passing flatus Additional Comments Notes some left leg paresthesias similar to preop Objective Last 24 Hour Vital Signs Date Time Temp Pulse Resp B/P (MAP) Pulse Ox O2 Delivery O2 Flow Rate FiO2 10/30/18 08:00 97.8 61 20 99/54 (69) 98 10/30/18 04:00 98.3 67 16 96/52 (67) 99 10/30/18 00:00 98.6 68 16 91/54 (66) 99 10/29/18 21:00 Nasal Cannula 3.0 10/29/18 20:30 65 105/64 (78) 96 10/29/18 20:00 98.2 63 18 92/53 (66) 95 10/29/18 17:08 97.9 10/29/18 17:08 97.9 10/29/18 17:05 Nasal Cannula 3.0 10/29/18 17:05 97.6 50 18 98/60 (73) 98 10/29/18 16:53 97.9 54 13 100/53 100 Nasal Cannula 3 10/29/18 16:38 52 14 108/68 100 Nasal Cannula 3 10/29/18 16:25 51 15 104/67 100 Nasal Cannula 3 10/29/18 16:10 53 13 101/65 100 Nasal Cannula 3 10/29/18 16:00 60 20 102/65 100 Simple Mask 6 10/29/18 15:50 62 15 102/63 100 Simple Mask 6 10/29/18 15:45 66 17 104/64 100 Simple Mask 6 10/29/18 15:41 97.9 70 16 98/63 100 Simple Mask 6 10/29/18 15:40 69 18 100 10/29/18 15:39 70 16 100 10/29/18 11:12 Room Air 10/29/18 11:08 98.6 52 18 101/64 (76) 98 I&O Intake and Output 10/29/18 10/30/18 19:00 07:00 Intake Total 700 ml 1200 ml Output Total 220 ml Balance 480 ml 1200 ml Intake IV Total 700 ml 1200 ml Output Urine Total 200 ml Estimated Blood Loss 20 ml # Voids 1 Dressing: dry Wound: clean, dry, intact Drains: none Abdomen: soft, flat Extremities: edema, no edema, no tenderness, no cyanosis, other - EHL Tibanterior 4+/5 Plan Additional Comments Continue with SCDs Incentive [place] 10x hr Dc Curran catheter Anticipate dc home Thursday Ptherapy today and Thursday Jamar Ward MD Oct 30, 2018 10:27
--- NOTE | 2018-10-30 11:12 | NUR ---
NURSE NOTES: Curran catheter removed per MD order. Patient tolerated well. Patient instructed to inform RN when ready to void. Will follow up and continue to monitor.
[2018-10-30 12:00] VITALS: BP 98/55
--- NOTE | 2018-10-30 13:45 | NUR ---
CASE MANAGEMENT: REVIEW 48 YO M PRESENTED TO OUR ED FROM HOME CC: BACK PAIN PMHx: BACK INJURY SI:HERNIATED NUCLEUS PULPOSUS. PAIN RADICULOPATHY. T 98.6 HR 52 RR 18 B/P 101/64 SATS 98% ON RA HCG NEG IS: OR MEDS PATIENT ADMITTED TO MED/SURG 10/29/2018 @ 1006 DCP: PATIENT TO BE DISCHARGED TO HOME ONCE MEDICALLY CLEARED. PLAN OF CARE: POST OP CARE Procedure Narrative: Left sided hemilaminotomy foraminotomy microdiscectomy of Lumbar 45 and Lumbar 5 Sacral 1 Pre-Operative Diagnosis: L4-5 and L5-S1 herniation
--- NOTE | 2018-10-30 14:42 | Cardiology Progress Note ---
Assessment/Plan Assessment/Plan 1. Low back pain secondary to L4, L5, and S1 disk herniation. postoperative day #1. 2. Nausea. 3. Minimal hypotension. antiemetic dvt ppx IS ambualte home soon bp at baseline pain management Subjective Cardiovascular: Denies: chest pain, lightheadedness, palpitations Respiratory: Denies: shortness of breath Gastrointestinal/Abdominal: Denies: abdominal pain Genitourinary: Denies: burning Objective Last 24 Hour Vital Signs Date Time Temp Pulse Resp B/P (MAP) Pulse Ox O2 Delivery O2 Flow Rate FiO2 10/30/18 12:00 98.6 60 20 98/55 (69) 97 10/30/18 10:57 97.8 10/30/18 09:00 Room Air 10/30/18 08:00 97.8 61 20 99/54 (69) 98 10/30/18 04:00 98.3 67 16 96/52 (67) 99 10/30/18 00:00 98.6 68 16 91/54 (66) 99 10/29/18 21:00 Nasal Cannula 3.0 10/29/18 20:30 65 105/64 (78) 96 10/29/18 20:00 98.2 63 18 92/53 (66) 95 10/29/18 17:08 97.9 10/29/18 17:08 97.9 10/29/18 17:05 Nasal Cannula 3.0 10/29/18 17:05 97.6 50 18 98/60 (73) 98 10/29/18 16:53 97.9 54 13 100/53 100 Nasal Cannula 3 10/29/18 16:38 52 14 108/68 100 Nasal Cannula 3 10/29/18 16:25 51 15 104/67 100 Nasal Cannula 3 10/29/18 16:10 53 13 101/65 100 Nasal Cannula 3 10/29/18 16:00 60 20 102/65 100 Simple Mask 6 10/29/18 15:50 62 15 102/63 100 Simple Mask 6 10/29/18 15:45 66 17 104/64 100 Simple Mask 6 10/29/18 15:41 97.9 70 16 98/63 100 Simple Mask 6 10/29/18 15:40 69 18 100 10/29/18 15:39 70 16 100 General Appearance: no apparent distress, alert Neck: supple Cardiovascular: normal rate, regular rhythm Respiratory/Chest: lungs clear, normal breath sounds Abdomen: normal bowel sounds, non tender, soft Intake and Output 10/29/18 10/30/18 18:59 06:59 Intake Total 700 ml 1100 ml Output Total 220 ml Balance 480 ml 1100 ml Intake IV Total 700 ml 1100 ml Output Urine Total 200 ml Estimated Blood Loss 20 ml # Voids 1 Gui Orr MD Oct 30, 2018 14:42
--- NOTE | 2018-10-30 15:55 | NUR ---
PT Note PT zacarias completed, treatment initiated. Patient c/o pain on the left lumbar and hip area, increased on weight bearing. Patient needs PT services to increase her muscle strength to improve her safety in mobility and gait. Addendum: 10/30/18 at 1556 by LEODAN GARCIA PT Amended: Links added.
[2018-10-30 16:00] VITALS: BP 100/55
--- NOTE | 2018-10-30 16:37 | NUR ---
NURSE NOTES: Patient voided 1000mL of clear, yellow urine. No discomfort with urination reported by patient. Will continue to monitor.
--- NOTE | 2018-10-30 17:39 | NUR ---
NURSE NOTES: Posterior dressing changed per order. Patient tolerated well. Wound edges are well approximated with no redness or purulent drainage noted from surgical site. Will continue to monitor.
--- NOTE | 2018-10-30 19:28 | NUR ---
HAND-OFF: Report given to Finesse RN. Patient in stable condition.
[2018-10-30 20:00] VITALS: BP 101/49
--- NOTE | 2018-10-30 20:07 | NUR ---
NURSE NOTES: Received report from Jennie GAN. Pt is A&O x4 laying semi-fowlers in bed. Pt on RA w/ IS at bedside. Pt c/o 02/21 pain. IV site dry & intact, infusing fluids. Surgical dressing C/D/I. Call light in reach, bed in lowest position, side rails up x2. Pt's daughters at bedside. Will continue to monitor pt.
[2018-10-31] VITALS: BP 100/49
[2018-10-31] MEDS: NS w/KCl 20mEq 1,000 ML IV SCH ×2 (01:00→11:00)
[2018-10-31 04:00] VITALS: BP 93/59
--- NOTE | 2018-10-31 07:14 | NUR ---
HAND-OFF: Report given to Jennie GAN. Pt is stable.
--- NOTE | 2018-10-31 07:43 | NUR ---
NURSE NOTES: Received report from Finesse GAN. Patient is awake alert and oriented x4, no s/s acute distress noted. IVF running per order, SCD's in place. Patient reports pain 4/10 at surgical site but is not requesting pain medication at this time. Dressing c/d/i. Patient update on plan of care. Side rails upx3, bed low and locked, call light in reach. Will continue to monitor.
[2018-10-31 08:00] VITALS: BP 96/59
[2018-10-31] MEDS: Docusate 100mg cap ORAL SCH (08:47)
[2018-10-31] MEDS: Docusate Sod/Senna tab ORAL SCH (08:48)
[2018-10-31 12:00] VITALS: BP 99/54
[2018-10-31] MEDS ORDERED: NORCO 10-325 T1 EACH ORAL (13:11)
--- NOTE | 2018-10-31 14:22 | Cardiology Progress Note ---
Assessment/Plan Assessment/Plan 1. Low back pain secondary to L4, L5, and S1 disk herniation. postoperative day #1. 2. Nausea. 3. Minimal hypotension. antiemetic dvt ppx IS ambualte hometoday per dr watts bp at baseline pain managed adequatley walkin in [place] looks good going bernardo today Subjective Cardiovascular: Denies: chest pain, lightheadedness Respiratory: Denies: shortness of breath Gastrointestinal/Abdominal: Denies: abdominal pain Genitourinary: Denies: burning Objective Last 24 Hour Vital Signs Date Time Temp Pulse Resp B/P (MAP) Pulse Ox O2 Delivery O2 Flow Rate FiO2 10/31/18 09:00 Room Air 10/31/18 08:00 98.0 63 15 96/59 (71) 93 10/31/18 04:00 98.6 96 16 93/59 (70) 97 10/31/18 00:00 98.8 70 18 100/49 (66) 97 10/30/18 21:00 Room Air 10/30/18 20:00 99.8 70 18 101/49 (66) 98 10/30/18 16:00 98.0 60 20 100/55 (70) 98 General Appearance: no apparent distress, alert Neck: supple Cardiovascular: normal rate, regular rhythm Respiratory/Chest: lungs clear, normal breath sounds Abdomen: normal bowel sounds, non tender, soft Extremities: no swelling Intake and Output 10/30/18 10/31/18 18:59 06:59 Intake Total 1400 ml 900 ml Output Total 2000 ml Balance -600 ml 900 ml Intake Oral 500 ml IV Total 900 ml 900 ml Output Urine Total 2000 ml # Voids 1 Microbiology Date/Time Source Procedure Growth Status 10/29/18 10:15 Nasal Nares MRSA Culture - Final NO METHICILLIN RESISTANT STAPH AUREUS... Complete Gui Orr MD Oct 31, 2018 14:22
[2018-10-31 16:00] VITALS: BP 94/55
--- NOTE | 2018-10-31 16:24 | NUR ---
NURSE NOTES: Patient discharge. No s/s acute distress on discharge. VS assessed and at patient's baseline. MD aware patient's blood pressure runs low and states ok and safe to discharge. IV removed intact. Patient given discharge instructions via [employer] eclectic doctor [employer] #[id number]. Patient reports understanding of the education provided. Patient given Rx and signed for. Raised toilet seat given to patient per order. Dr. Ward ordered for patient to change dressing daily upon discharge. Instructed patient's daughter Melvina how to perform daily dressing change and provided with dressing change supplies. Melvina reports understanding of the education . Patient instructed not to drive until cleared by MD. IV removed intact. Patient escorted off unit via wheelchair by RADIAGRAPH OPERATOR at 1423 to private vehicle. Patient's daughter Melvina will drive patient home.
--- NOTE | 2018-10-31 17:00 | Discharge Summary ---
DATE OF ADMISSION: 10/29/2018 DATE OF DISCHARGE: 10/31/2018 DATE OF ADMISSION: 10/29/2018. DATE OF DISCHARGE: 10/31/2018. PROCEDURE PERFORMED DURING ADMISSION: Hemilaminotomy, foraminotomy, microdiskectomy, left-sided L4-L5, L5-S1. REASON FOR ADMISSION: Herniated nucleus pulposus L4-L5, L5-S1 left-sided. HOSPITAL COURSE/TREATMENT RENDERED: Included SCDs, nursing, IV fluids, and physical therapy. DISCHARGE PHYSICAL EXAM: 1. The patient was ambulating with and without the assistance of physical therapy. 2. Prior to discharge home incision was clean and dry with minimal swelling. 3. Follows commands. 4. Alert and oriented. 5. Curran discontinued, voiding. 6. Incentive spirometer at bedside. 7. IVF hep locked. MOTOR: Demonstrates expected postoperative bulk and tone. Moves biceps, triceps, and deltoid musculature on command. Moves hip flexors, quadriceps, tibialis anterior, EHL, gastrocsoleus musculature on command as well. TREATMENT RENDERED: 1. Daily nursing care. 2. Physical Therapy. 3. Occupational Therapy. 4. Intravenous medications. 5. Oral medications. 6. Daily postoperative examinations by Spine surgery team. CONDITION OF PATIENT ON DISCHARGE: The condition on discharge is stable for discharge to home. DISCHARGE INSTRUCTIONS: Our specific instructions relating to physical activity, medications diet and follow-up care are detailed in our standard operative folder and were given to this patient prior to surgery. We will however summarize these briefly as stated below. Regarding physical activity we would like the patient to limit their flexion, extension and rotation. We also require a limitation on their bending lifting and twisting. All medication has been called in prior to surgery to their pharmacy of choice. They can resume their regular diet once tolerated. We would like them to shower and limit soaking the wound in a tub/Jacuzzi/the ocean for a period of one month or until the incision is completely healed. We will have them follow up in our office in three weeks time for their regularly scheduled appointment. They understand to call our office tomorrow to schedule the time for their three week followup appointment. The patient will notify us should they experience any increase in the severity of pain, redness/swelling/ or drainage from their incision. Jamar Ward M.D. DR: Luis Enrique JOB#: [id number] CC:
== END 2018-10-31 16:25 | disposition home or self-care (01) | DRG 520 ==
LOC: SDSOVERFLO 09:56 → 3E 17:15
DX: M51.16 Intervertebral disc disorders with radiculopathy, lumbar region (principal); M51.17 Intervertebral disc disorders with radiculopathy, lumbosacral region; M48.061 Spinal stenosis, lumbar region without neurogenic claudication; V89.2XXS Person injured in unspecified motor-vehicle accident, traffic, sequela; R11.0 Nausea
CPT/HCPCS: 36415; 72020; 76000; 81025; 86850; 86900; 86901; 87081; 94003; 94150; C9399; J2405; J2710